=== PATIENT | female | born 1960 | race Caucasian/White ===

== ENCOUNTER 2018-01-22 12:37 | Observation (INO) ==
[2018-01-22] MEDS ORDERED: ENOXAPARIN 100 MG/ML SYRINGE SUBCUT STA (13:20)
[2018-01-22] MEDS ORDERED: AMIODARONE INJ 150 MG in DEXTROSE 5% 100 ML IV ONE (13:24)
[2018-01-22] MEDS ORDERED: AMIODARONE INJ 450 MG in DEXTROSE 5% 241 ML IV SCH (13:30)
[2018-01-22 13:50] LABS: Basophils # 0.1 10*3/uL (0.0-0.2); Basophils % 0.8 % (0.0-0.8); Eosinophils # 0.3 10*3/uL (0.0-0.87); Eosinophils % 3.2 % (0.00-10.9); Hematocrit 37.7 VOL% (35.7-47.0); Hemoglobin 12.8 GM/DL (12.0-16.0); Immature Granulocytes % 0.2 %; Immature Granulocytes Absolute 0.02 #; Lymphocytes # 2.5 10*3/uL (1.4-4.0); Lymphocytes % 27.7 % (21.3-54.2); Mean Corpuscular Hemoglobin 31 PG (27-34); Mean Corpuscular Volume 90.8 FL (87-102); Mean Platelet Volume 11.5 FL (9.6-12.0); Monocytes # 0.9 10*3/uL (0.11-0.8); Monocytes % 9.4 % (1.7-12.7); Neutrophils # 5.3 10*3/uL (1.4-7.4); Neutrophils % 58.7 % (38.7-73.9); Platelet Count 206 T/CUMM (130-400); Red Blood Count 4.15 MC/CUMM (3.8-5.5); Red Cell Distribution Width 13.7 % (9.3-17.3); White Blood Count 9.1 T/CUMM (4-12)
[2018-01-22] MEDS ORDERED: ACETAMINOPHEN 325 MG TABLET PO PRN (14:00)
[2018-01-22] MEDS ORDERED: ONDANSETRON 4 MG/2 ML VIAL IV PRN (14:00)
[2018-01-22] MEDS ORDERED: ZALEPLON 5 MG CAPSULE PO PRN (14:00)
[2018-01-22] MEDS ORDERED: MAGNESIUM SULF RIDER 4 GM in PREMIX 1 EACH IV PRN (14:00)
[2018-01-22] MEDS ORDERED: MAGNESIUM SULF RIDER 2 GM in PREMIX 1 EACH IV PRN (14:00)
[2018-01-22 14:45] LABS: Alanine Aminotransferase 22 U/L (13-56); Albumin 3.3 G/DL (3.4-5.0); Alkaline Phosphatase 87 U/L (45-117); Aspartate Amino Transferase 25 U/L (0-37); Bilirubin,Total < 0.39 MG/DL (0.2-1.0); Blood Urea Nitrogen 19 MG/DL (7-18); Calcium 8.7 MG/DL (8.5-10.1); Glucose 120 MG/DL (74-106); Osmolality,Calculated 292.6 MOS/KG (273-304); Potassium 3.8 MMOL/L (3.5-5.1); Sodium 146 MMOL/L (136-145); Total Protein 6.3 G/DL (6.4-8.3)
[2018-01-22] MEDS ORDERED: NICOTINE 21 MG/24 HR PATCH TRANSDERM SCH (15:00)
[2018-01-22] MEDS: SODIUM CHLORIDE 0.45% 1,000 ML IV SCH (15:36)
[2018-01-22] MEDS: GEMFIBROZIL 600 MG TABLET PO SCH (16:00)
[2018-01-22] MEDS: POTASSIUM CHLORIDE 20 MEQ TABLET PO PRN (16:00)
[2018-01-22] MEDS: MAGNESIUM OXIDE 400 MG TABLET PO SCH ×2 (16:00→20:11)
[2018-01-22] MEDS ORDERED: ALPRAZolam 0.25 MG TABLET PO PRN (16:33)
[2018-01-22] MEDS ORDERED: MAGNESIUM HYDROXIDE SUSP 30 ML UDCUP PO PRN (16:33)
[2018-01-22] MEDS ORDERED: diphenhydrAMINE CAP 25 MG CAPSULE PO PRN (16:33)
[2018-01-22] MEDS: GABAPENTIN 300 MG CAPSULE PO SCH (20:10)
[2018-01-22] MEDS: CILOSTAZOL 100 MG TABLET PO SCH (20:10)
[2018-01-22] MEDS: CARVEDILOL 6.25 MG TABLET PO SCH (20:11)
[2018-01-22] MEDS: DOCUSATE SODIUM 100 MG CAPSULE PO SCH (20:12)
[2018-01-22] MEDS ORDERED: traZODone 50 MG TABLET PO SCH (21:00)
[2018-01-22] MEDS ORDERED: CLOPIDOGREL 75 MG TABLET PO SCH (21:00)
[2018-01-22] MEDS ORDERED: AMIODARONE 200 MG TABLET PO SCH (21:00)
[2018-01-22] MEDS ORDERED: PRAMIPEXOLE 1 MG TABLET PO SCH (21:00)
[2018-01-22] MEDS ORDERED: ATORVASTATIN 80 MG TABLET PO SCH (21:00)
[2018-01-23] MEDS: SODIUM CHLORIDE 0.45% 1,000 ML IV SCH (01:36)
[2018-01-23 03:09] VITALS: BP 133/63
[2018-01-23 03:49] LABS: Basophils # 0.1 10*3/uL (0.0-0.2); Basophils % 0.7 % (0.0-0.8); Eosinophils # 0.3 10*3/uL (0.0-0.87); Hematocrit 35.4 VOL% (35.7-47.0); Hemoglobin 12.2 GM/DL (12.0-16.0); Immature Granulocytes % 0.4 %; Immature Granulocytes Absolute 0.03 #; Lymphocytes # 2.3 10*3/uL (1.4-4.0); Mean Corpuscular HGB Conc 34.5 GM/DL (32-36); Mean Corpuscular Hemoglobin 31 PG (27-34); Mean Corpuscular Volume 90.3 FL (87-102); Mean Platelet Volume 11.2 FL (9.6-12.0); Monocytes # 0.6 10*3/uL (0.11-0.8); Monocytes % 6.9 % (1.7-12.7); Neutrophils # 5.2 10*3/uL (1.4-7.4); Platelet Count 189 T/CUMM (130-400); Red Blood Count 3.92 MC/CUMM (3.8-5.5); White Blood Count 8.4 T/CUMM (4-12)
[2018-01-23 04:23] LABS: Calcium 8.4 MG/DL (8.5-10.1); Osmolality,Calculated 285.8 MOS/KG (273-304); Potassium 3.9 MMOL/L (3.5-5.1); Thyroid Stimulating Hormone 0.605 uIU/ml (0.358-3.74)
[2018-01-23] MEDS ORDERED: HEPARIN/NACL 0.9% 2 UNITS/ML 1,000 ML IV ONE (06:30)
[2018-01-23] MEDS: POTASSIUM CHLORIDE 20 MEQ TABLET PO PRN (06:42)
[2018-01-23] MEDS ORDERED: VERAPAMIL 5 MG/2 ML VIAL ONE (06:52)
[2018-01-23] MEDS ORDERED: LIDOCAINE 1% 20 ML VIAL ONE (06:52)
[2018-01-23] MEDS ORDERED: NITROGLYCERIN DRIP 50 MG/250 ML BOTTLE IV ONE (06:52)
[2018-01-23] MEDS ORDERED: diphenhydrAMINE CAP 25 MG CAPSULE PO ONE (07:00)
[2018-01-23] MEDS ORDERED: DIAZEPAM 5 MG TABLET PO ONE (07:00)
[2018-01-23] MEDS ORDERED: MIDAZOLAM 2 MG/2 ML VIAL ONE (07:04)
[2018-01-23] MEDS ORDERED: fentaNYL 100 MCG/2 ML VIAL ONE (07:04)
[2018-01-23] MEDS ORDERED: ENOXAPARIN 60 MG/0.6 ML SYRINGE ONE (07:13)
[2018-01-23] MEDS: GEMFIBROZIL 600 MG TABLET PO SCH (08:12)
[2018-01-23] MEDS ORDERED: PANTOPRAZOLE 40 MG TABLET PO SCH (09:00)
[2018-01-23] MEDS ORDERED: ASPIRIN EC 81 MG TABLET PO SCH (09:00)
[2018-01-23] MEDS ORDERED: LOSARTAN/HCTZ 50-12.5 MG TABLET PO SCH (09:00)
[2018-01-23] MEDS ORDERED: POTASSIUM CHLORIDE 20 MEQ TABLET PO SCH (09:00)
[2018-01-23] MEDS: CILOSTAZOL 100 MG TABLET PO SCH (09:05)
[2018-01-23] MEDS: CARVEDILOL 6.25 MG TABLET PO SCH (09:05)
[2018-01-23] MEDS: GABAPENTIN 300 MG CAPSULE PO SCH (09:05)
[2018-01-23] MEDS: MAGNESIUM OXIDE 400 MG TABLET PO SCH (09:05)
[2018-01-23] MEDS: DOCUSATE SODIUM 100 MG CAPSULE PO SCH (09:06)
[2018-01-23] MEDS ORDERED: ENOXAPARIN 40 MG/0.4 ML SYRINGE SUBCUT SCH (13:00)
== END 2018-01-23 10:30 | disposition home or self-care (01) ==
LOC: EDUNIT# → EDBD → N.EDINP 12:37 → N.ED 12:37 → N.ICU 14:34
PROVIDERS: ADMIT Internal Medicine Cardiovascular Disease; ATTEND Internal Medicine Cardiovascular Disease
PROC: CLCCHCL (ICD-10-PCS; 2018-01-23 07:45)

== ENCOUNTER 2020-11-20 06:05 | Inpatient (IN) ==
[2020-11-20] MEDS ORDERED: diphenhydrAMINE CAP 50 MG CAPSULE PO ONE (06:06)
[2020-11-20] MEDS ORDERED: POTASSIUM CHLORIDE RIDER 10 MEQ in PREMIX 1 EACH IV PRN (06:06)
[2020-11-20] MEDS ORDERED: DIAZEPAM 5 MG TABLET PO ONE (06:06)
[2020-11-20] MEDS ORDERED: MAGNESIUM SULF RIDER 2 GM/50 ML PREMIX IV PRN (06:06)
[2020-11-20] MEDS ORDERED: ASPIRIN 325 MG TABLET PO ONE (06:06)
[2020-11-20 07:09] LABS: Basophils # 0.1 10*3/uL (0.0-0.2); Basophils % 0.8 % (0.0-0.8); Eosinophils # 0.7 10*3/uL (0.0-0.87); Eosinophils % 7.3 % (0.00-10.9); Hematocrit 35.6 VOL% (35.7-47.0); Hemoglobin 11.6 GM/DL (12.0-16.0); Immature Granulocytes % 0.4 %; Immature Granulocytes Absolute 0.04 #; Lymphocytes # 3.3 10*3/uL (1.4-4.0); Lymphocytes % 35.4 % (21.3-54.2); Mean Corpuscular HGB Conc 32.6 GM/DL (32-36); Mean Corpuscular Volume 92.5 FL (87-102); Mean Platelet Volume 11.1 FL (9.6-12.0); Monocytes % 8.8 % (1.7-12.7); Neutrophils % 47.3 % (38.7-73.9); Platelet Count 170 T/CUMM (130-400); Red Blood Count 3.85 MC/CUMM (3.8-5.5); Red Cell Distribution Width 13.6 % (9.3-17.3); White Blood Count 9.2 T/CUMM (4-12)
[2020-11-20] MEDS ORDERED: diphenhydrAMINE CAP 50 MG CAPSULE ONE (07:13)
[2020-11-20] MEDS ORDERED: DIAZEPAM 5 MG TABLET ONE (07:13)
[2020-11-20] MEDS ORDERED: ASPIRIN 325 MG TABLET ONE (07:13)
[2020-11-20] MEDS: SODIUM CHLORIDE 0.9% 1,000 ML IV SCH ×3 (07:15→21:30)
[2020-11-20 07:33] LABS: Eosinophils 5 % (0-10); Hypochromasia 1+; Lymphocytes 36 % (20-55); Microcytosis 1+; Ovalocytes Slight; Platelet Estimate Adequate; Segmented Neutrophils 55 % (50-85); Total Cells Counted 100
[2020-11-20 07:35] LABS: Albumin 3.4 G/DL (3.4-5.0); Bilirubin,Total 1.1 MG/DL (0.2-1.0); Calcium 9.6 MG/DL (8.5-10.1); Osmolality,Calculated 278.5 MOS/KG (273-304); Potassium 4.5 MMOL/L (3.5-5.1)
[2020-11-20] MEDS ORDERED: MIDAZOLAM 2 MG/2 ML VIAL ONE (09:04)
[2020-11-20] MEDS ORDERED: HYDROmorphone 2 MG/1 ML VIAL ONE ×3 (09:04→10:46)
[2020-11-20] MEDS ORDERED: LIDOCAINE 1% 20 ML VIAL ONE (09:04)
[2020-11-20] MEDS ORDERED: NITROGLYCERIN DRIP 50 MG/250 ML BOTTLE IV ONE (09:04)
[2020-11-20] MEDS ORDERED: VERAPAMIL 5 MG/2 ML VIAL ONE ×3 (09:05→09:45)
[2020-11-20] MEDS ORDERED: ENOXAPARIN 60 MG/0.6 ML SYRINGE ONE (09:18)
[2020-11-20] MEDS ORDERED: TIROFIBAN 5,000 MCG/100 ML PREMIX IV ONE (10:33)
[2020-11-20] MEDS ORDERED: ENOXAPARIN 30 MG/0.3 ML SYRINGE ONE ×2 (10:36→11:13)
[2020-11-20] MEDS ORDERED: ALTEPLASE 12 MG in SODIUM CHLORIDE 0.9% 240 ML IV SCH (12:43)
[2020-11-20] MEDS ORDERED: ALTEPLASE 2 MG VIAL ONE (12:44)
[2020-11-20] MEDS ORDERED: ALTEPLASE 2 MG VIAL INTRACATH ONE (12:47)
[2020-11-20 14:33] LABS: INR 1.1; PT Patient Result 12.2 SECS (9.8-11.9); Partial Thromboplastin Time 46.3 SECS (23.9-33.8)
[2020-11-20] MEDS: HEPARIN DRIP 25,000 UNITS/500 ML PREMIX IV SCH (15:00)
[2020-11-20] MEDS ORDERED: diphenhydrAMINE CAP 25 MG CAPSULE PO PRN (16:16)
[2020-11-20] MEDS ORDERED: GLUCAGON 1 MG VIAL IM PRN (16:17)
[2020-11-20] MEDS ORDERED: MAGNESIUM HYDROXIDE SUSP 30 ML UDCUP PO PRN (16:17)
[2020-11-20] MEDS ORDERED: DEXTROSE 50% 25 GM/50 ML VIAL IV PRN (16:17)
[2020-11-20] MEDS: INSULIN REGULAR 100 UNIT/ML SUBCUT SCH ×2 (17:23→20:23)
[2020-11-20] MEDS ORDERED: HYDROmorphone 2 MG/1 ML VIAL IV ONE (17:56)
[2020-11-20 18:53] LABS: INR 1.1; PT Patient Result 11.8 SECS (9.8-11.9)
[2020-11-20] MEDS: buPROPion 100 MG TABLET PO SCH (21:06)
[2020-11-20] MEDS: MULTIVITAMIN (OCUVITE) TABLET PO SCH (21:06)
[2020-11-20] MEDS: PRAMIPEXOLE 1 MG TABLET PO SCH (21:06)
[2020-11-20] MEDS: gemfibroziL 600 MG TABLET PO SCH (21:07)
[2020-11-20] MEDS: traZODone 50 MG TABLET PO SCH (21:07)
[2020-11-20] MEDS: ATORVASTATIN 80 MG TABLET PO SCH (21:08)
[2020-11-20] MEDS: GABAPENTIN 300 MG CAPSULE PO SCH (21:08)
[2020-11-20] MEDS: PANTOPRAZOLE 40 MG TABLET PO SCH (21:09)
[2020-11-20] MEDS: carvediloL 25 MG TABLET PO SCH (21:09)
[2020-11-20] MEDS ORDERED: ENOXAPARIN 60 MG/0.6 ML SYRINGE SUBCUT ONE (23:40)
[2020-11-21 01:22] LABS: Basophils % 0.2 % (0.0-0.8); Eosinophils # 0.4 10*3/uL (0.0-0.87); Eosinophils % 3.4 % (0.00-10.9); Hematocrit 32.1 VOL% (35.7-47.0); Hemoglobin 10.1 GM/DL (12.0-16.0); Immature Granulocytes % 0.3 %; Immature Granulocytes Absolute 0.03 #; Lymphocytes # 1.2 10*3/uL (1.4-4.0); Lymphocytes % 10.4 % (21.3-54.2); Mean Corpuscular HGB Conc 31.5 GM/DL (32-36); Mean Corpuscular Volume 94.4 FL (87-102); Mean Platelet Volume 11.3 FL (9.6-12.0); Monocytes % 6.8 % (1.7-12.7); Neutrophils % 78.9 % (38.7-73.9); Platelet Count 130 T/CUMM (130-400); Red Cell Distribution Width 13.7 % (9.3-17.3); White Blood Count 11.3 T/CUMM (4-12)
[2020-11-21 01:29] LABS: INR 1.1; PT Patient Result 12.2 SECS (9.8-11.9)
[2020-11-21 01:31] LABS: Partial Thromboplastin Time 41.6 SECS (23.9-33.8)
[2020-11-21 01:34] LABS: Osmolality,Calculated 274.7 MOS/KG (273-304); Potassium 4.4 MMOL/L (3.5-5.1)
[2020-11-21] MEDS: SODIUM CHLORIDE 0.9% 1,000 ML IV SCH ×5 (07:45→22:22)
[2020-11-21] MEDS: INSULIN REGULAR 100 UNIT/ML SUBCUT SCH ×4 (08:44→21:01)
[2020-11-21] MEDS: carvediloL 25 MG TABLET PO SCH ×2 (09:08→18:00)
[2020-11-21] MEDS: ASPIRIN EC 81 MG TABLET PO SCH (09:08)
[2020-11-21] MEDS: gemfibroziL 600 MG TABLET PO SCH ×2 (09:51→21:01)
[2020-11-21] MEDS: MULTIVITAMIN (OCUVITE) TABLET PO SCH ×2 (09:52→21:01)
[2020-11-21] MEDS: buPROPion 100 MG TABLET PO SCH ×2 (09:52→21:01)
[2020-11-21] MEDS: PANTOPRAZOLE 40 MG TABLET PO SCH ×2 (09:52→21:01)
[2020-11-21] MEDS: GABAPENTIN 300 MG CAPSULE PO SCH ×3 (09:52→21:01)
[2020-11-21] MEDS ORDERED: LIDOCAINE 1% 20 ML VIAL ONE (12:52)
[2020-11-21 12:58] LABS: Partial Thromboplastin Time 37.6 SECS (23.9-33.8)
[2020-11-21] MEDS ORDERED: MIDAZOLAM 2 MG/2 ML VIAL ONE ×2 (13:47→16:08)
[2020-11-21] MEDS ORDERED: HYDROmorphone 2 MG/1 ML VIAL ONE ×2 (13:47→16:08)
[2020-11-21] MEDS ORDERED: VERAPAMIL 5 MG/2 ML VIAL ONE (14:00)
[2020-11-21] MEDS ORDERED: NITROGLYCERIN DRIP 50 MG/250 ML BOTTLE IV ONE (14:00)
[2020-11-21] MEDS ORDERED: HEPARIN 5,000 UNIT/1 ML VIAL ONE (14:13)
[2020-11-21] MEDS ORDERED: ALTEPLASE 2 MG VIAL ONE (14:34)
[2020-11-21] MEDS ORDERED: TIROFIBAN 5,000 MCG/100 ML PREMIX IV ONE (15:04)
[2020-11-21] MEDS ORDERED: ONDANSETRON 4 MG/2 ML VIAL IV PRN (16:09)
[2020-11-21] MEDS ORDERED: NITROGLYCERIN SL 0.4 MG TABLET SL PRN (16:09)
[2020-11-21] MEDS ORDERED: ZALEPLON 5 MG CAPSULE PO PRN (16:09)
[2020-11-21] MEDS ORDERED: HYDROmorphone 2 MG/1 ML VIAL IV PRN (16:09)
[2020-11-21] MEDS ORDERED: CLOPIDOGREL 300 MG TABLET ONE (16:14)
[2020-11-21] MEDS: HEPARIN DRIP 25,000 UNITS/500 ML PREMIX IV SCH (17:42)
[2020-11-21] MEDS: ATORVASTATIN 80 MG TABLET PO SCH (21:01)
[2020-11-21] MEDS: cilostazoL 100 MG TABLET PO SCH (21:01)
[2020-11-21] MEDS: PRAMIPEXOLE 1 MG TABLET PO SCH (21:01)
[2020-11-21] MEDS: CLOPIDOGREL 75 MG TABLET PO SCH (21:01)
[2020-11-21] MEDS: traZODone 50 MG TABLET PO SCH (21:01)
[2020-11-22 01:16] LABS: Basophils % 0.1 % (0.0-0.8); Eosinophils # 0.4 10*3/uL (0.0-0.87); Eosinophils % 3.1 % (0.00-10.9); Hematocrit 27.3 VOL% (35.7-47.0); Hemoglobin 8.9 GM/DL (12.0-16.0); Immature Granulocytes % 0.6 %; Immature Granulocytes Absolute 0.07 #; Lymphocytes # 0.8 10*3/uL (1.4-4.0); Lymphocytes % 6.8 % (21.3-54.2); Mean Corpuscular HGB Conc 32.6 GM/DL (32-36); Mean Corpuscular Volume 93.2 FL (87-102); Mean Platelet Volume 11.3 FL (9.6-12.0); Monocytes % 5.1 % (1.7-12.7); Neutrophils % 84.3 % (38.7-73.9); Platelet Count 107 T/CUMM (130-400); Red Blood Count 2.93 MC/CUMM (3.8-5.5); Red Cell Distribution Width 13.6 % (9.3-17.3); White Blood Count 12.1 T/CUMM (4-12)
[2020-11-22 01:31] LABS: Partial Thromboplastin Time 35.6 SECS (23.9-33.8)
[2020-11-22 01:42] LABS: Calcium 7.2 MG/DL (8.5-10.1); Osmolality,Calculated 273.7 MOS/KG (273-304); Potassium 3.4 MMOL/L (3.5-5.1)
[2020-11-22 04:55] LABS: Hypochromasia 1+; Microcytosis 1+; Polychromasia Slight
[2020-11-22 04:56] LABS: Platelet Estimate Adequate
[2020-11-22] MEDS: SODIUM CHLORIDE 0.9% 1,000 ML IV SCH (06:58)
[2020-11-22] MEDS: INSULIN REGULAR 100 UNIT/ML SUBCUT SCH ×4 (07:26→21:32)
[2020-11-22] MEDS ORDERED: POTASSIUM CHLORIDE 20 MEQ TABLET PO ONE (07:30)
[2020-11-22] MEDS ORDERED: ASPIRIN EC 81 MG TABLET PO SCH (09:00)
[2020-11-22] MEDS: carvediloL 25 MG TABLET PO SCH ×2 (09:11→18:01)
[2020-11-22] MEDS: PANTOPRAZOLE 40 MG TABLET PO SCH ×2 (09:11→21:32)
[2020-11-22] MEDS: NICOTINE 21 MG/24 HR PATCH TRANSDERM SCH (09:11)
[2020-11-22] MEDS: cilostazoL 100 MG TABLET PO SCH ×2 (09:11→21:31)
[2020-11-22] MEDS: ASPIRIN EC 81 MG TABLET PO SCH (09:11)
[2020-11-22] MEDS: GABAPENTIN 300 MG CAPSULE PO SCH ×3 (09:11→21:32)
[2020-11-22] MEDS: MULTIVITAMIN (OCUVITE) TABLET PO SCH ×2 (09:11→21:31)
[2020-11-22] MEDS: buPROPion 100 MG TABLET PO SCH ×2 (09:11→21:29)
[2020-11-22] MEDS: gemfibroziL 600 MG TABLET PO SCH ×2 (09:11→21:32)
[2020-11-22] MEDS: HEPARIN DRIP 25,000 UNITS/500 ML PREMIX IV SCH (12:46)
[2020-11-22 13:17] LABS: Partial Thromboplastin Time 30.3 SECS (23.9-33.8)
[2020-11-22] MEDS: traZODone 50 MG TABLET PO SCH (21:32)
[2020-11-22] MEDS: CLOPIDOGREL 75 MG TABLET PO SCH (21:32)
[2020-11-22] MEDS: ATORVASTATIN 80 MG TABLET PO SCH (21:32)
[2020-11-22] MEDS: PRAMIPEXOLE 1 MG TABLET PO SCH (21:32)
[2020-11-22] MEDS: VARENICLINE 1 MG PO SCH (21:33)
[2020-11-23 01:29] LABS: Partial Thromboplastin Time 37.6 SECS (23.9-33.8)
[2020-11-23] MEDS: INSULIN REGULAR 100 UNIT/ML SUBCUT SCH ×2 (07:53→11:13)
[2020-11-23] MEDS: cilostazoL 100 MG TABLET PO SCH ×2 (09:13→21:02)
[2020-11-23] MEDS: PANTOPRAZOLE 40 MG TABLET PO SCH ×2 (09:14→21:02)
[2020-11-23] MEDS: GABAPENTIN 300 MG CAPSULE PO SCH ×3 (09:14→21:01)
[2020-11-23] MEDS: MULTIVITAMIN (OCUVITE) TABLET PO SCH ×2 (09:14→21:02)
[2020-11-23] MEDS: carvediloL 25 MG TABLET PO SCH ×2 (09:14→16:11)
[2020-11-23] MEDS: buPROPion 100 MG TABLET PO SCH ×2 (09:14→21:02)
[2020-11-23] MEDS: gemfibroziL 600 MG TABLET PO SCH ×2 (09:15→21:02)
[2020-11-23] MEDS: ASPIRIN EC 81 MG TABLET PO SCH (09:15)
[2020-11-23] MEDS: NICOTINE 21 MG/24 HR PATCH TRANSDERM SCH (09:16)
[2020-11-23] MEDS: POTASSIUM CHLORIDE 20 MEQ TABLET PO PRN ×3 (09:16→11:57)
[2020-11-23 12:49] LABS: Basophils % 0.2 % (0.0-0.8); Eosinophils # 0.5 10*3/uL (0.0-0.87); Eosinophils % 6.2 % (0.00-10.9); Hematocrit 24.5 VOL% (35.7-47.0); Hemoglobin 7.9 GM/DL (12.0-16.0); Immature Granulocytes % 0.5 %; Immature Granulocytes Absolute 0.04 #; Lymphocytes # 1.3 10*3/uL (1.4-4.0); Lymphocytes % 16.3 % (21.3-54.2); Mean Corpuscular HGB Conc 32.2 GM/DL (32-36); Mean Corpuscular Volume 91.4 FL (87-102); Mean Platelet Volume 11.7 FL (9.6-12.0); Monocytes % 6.5 % (1.7-12.7); Neutrophils % 70.3 % (38.7-73.9); Platelet Count 120 T/CUMM (130-400); Red Blood Count 2.68 MC/CUMM (3.8-5.5); Red Cell Distribution Width 13.6 % (9.3-17.3); White Blood Count 8.1 T/CUMM (4-12)
[2020-11-23 13:05] LABS: Calcium 7.8 MG/DL (8.5-10.1); Osmolality,Calculated 279.3 MOS/KG (273-304)
[2020-11-23 19:23] LABS: Basophils % 0.2 % (0.0-0.8); Eosinophils # 0.5 10*3/uL (0.0-0.87); Eosinophils % 7.5 % (0.00-10.9); Hematocrit 25.5 VOL% (35.7-47.0); Hemoglobin 8.3 GM/DL (12.0-16.0); Immature Granulocytes % 0.8 %; Immature Granulocytes Absolute 0.05 #; Lymphocytes # 1.3 10*3/uL (1.4-4.0); Lymphocytes % 20.5 % (21.3-54.2); Mean Corpuscular HGB Conc 32.5 GM/DL (32-36); Mean Corpuscular Volume 91.7 FL (87-102); Mean Platelet Volume 11.1 FL (9.6-12.0); Monocytes % 7.2 % (1.7-12.7); Neutrophils % 63.8 % (38.7-73.9); Platelet Count 141 T/CUMM (130-400); Red Blood Count 2.78 MC/CUMM (3.8-5.5); Red Cell Distribution Width 13.5 % (9.3-17.3); White Blood Count 6.5 T/CUMM (4-12)
[2020-11-23] MEDS: traZODone 50 MG TABLET PO SCH (21:01)
[2020-11-23] MEDS: PRAMIPEXOLE 1 MG TABLET PO SCH (21:02)
[2020-11-23] MEDS: ATORVASTATIN 80 MG TABLET PO SCH (21:02)
[2020-11-23] MEDS: CLOPIDOGREL 75 MG TABLET PO SCH (21:02)
[2020-11-23] MEDS: VARENICLINE 1 MG PO SCH (21:26)
[2020-11-24 08:45] VITALS: BP 131/60
[2020-11-24] MEDS: ASPIRIN EC 81 MG TABLET PO SCH (09:11)
[2020-11-24] MEDS: GABAPENTIN 300 MG CAPSULE PO SCH (09:11)
[2020-11-24] MEDS: NICOTINE 21 MG/24 HR PATCH TRANSDERM SCH (09:11)
[2020-11-24] MEDS: gemfibroziL 600 MG TABLET PO SCH (09:11)
[2020-11-24] MEDS: MULTIVITAMIN (OCUVITE) TABLET PO SCH (09:12)
[2020-11-24] MEDS: PANTOPRAZOLE 40 MG TABLET PO SCH (09:12)
[2020-11-24] MEDS: buPROPion 100 MG TABLET PO SCH (09:12)
[2020-11-24] MEDS: carvediloL 25 MG TABLET PO SCH (09:12)
[2020-11-24] MEDS: cilostazoL 100 MG TABLET PO SCH (09:12)
[2020-11-26 13:55] LABS: HIT Interpretation Negative (Negative)
== END 2020-11-24 13:18 | disposition home or self-care (01) | DRG 169 ==
LOC: N.CL 06:05 → N.ICU 12:53 → N.TELES 11-22 17:20
PROVIDERS: ADMIT Internal Medicine Cardiovascular Disease; ATTEND Internal Medicine Cardiovascular Disease

== ENCOUNTER 2022-04-08 06:12 | Inpatient (IN) ==
[2022-04-03 12:53] LABS: Basophils # 0.1 10*3/uL (0.0-0.2); Basophils % 0.6 % (0.0-0.8); Eosinophils # 0.3 10*3/uL (0.0-0.87); Eosinophils % 3.9 % (0.00-10.9); Hematocrit 40.6 VOL% (35.7-47.0); Hemoglobin 13.6 GM/DL (12.0-16.0); Immature Granulocytes % 0.2 %; Immature Granulocytes Absolute 0.02 #; Lymphocytes # 2.6 10*3/uL (1.4-4.0); Lymphocytes % 31.8 % (21.3-54.2); Mean Corpuscular HGB Conc 33.5 GM/DL (32-36); Mean Corpuscular Volume 90.6 FL (87-102); Mean Platelet Volume 11.7 FL (9.6-12.0); Monocytes # 0.5 10*3/uL (0.11-0.8); Monocytes % 6.1 % (1.7-12.7); Neutrophils % 57.4 % (38.7-73.9); Platelet Count 186 T/CUMM (130-400); Red Blood Count 4.48 MC/CUMM (3.8-5.5); Red Cell Distribution Width 13.3 % (9.3-17.3); White Blood Count 8.2 T/CUMM (4-12)
[2022-04-03 12:56] LABS: PT Patient Result 11.1 SECS (10.1-12.1)
[2022-04-03 13:10] LABS: Alanine Aminotransferase 28 U/L (13-56); Albumin 3.6 G/DL (3.4-5.0); Alkaline Phosphatase 79 U/L (45-117); Aspartate Amino Transferase 31 U/L (0-37); Bilirubin,Total < 0.39 MG/DL (0.20-1.00); Blood Urea Nitrogen 9 MG/DL (7-18); Calcium 8.8 MG/DL (8.5-10.1); Carbon Dioxide 31 MMOL/L (21-32); Chloride 108 MMOL/L (98-107); Glucose 110 MG/DL (74-106); Osmolality,Calculated 282.1 MOS/KG (273-304); Potassium 4.1 MMOL/L (3.5-5.1); Sodium 142 MMOL/L (136-145)
[2022-04-08] MEDS ORDERED: LACTATED RINGERS 1,000 ML IV SCH (07:30)
[2022-04-08] MEDS ORDERED: TISSUE ADHESIVE 1 EACH APPLICATOR TOP ONE (08:24)
[2022-04-08] MEDS ORDERED: BUPIVACAINE 0.5% 50 ML VIAL ONE (08:24)
[2022-04-08] MEDS ORDERED: HEPARIN 5,000 UNIT/1 ML VIAL ONE (08:24)
[2022-04-08] MEDS ORDERED: MIDAZOLAM 2 MG/2 ML VIAL ONE (08:41)
[2022-04-08] MEDS ORDERED: propofoL 200 MG/20 ML VIAL IV ONE (08:41)
[2022-04-08] MEDS ORDERED: LIDOCAINE 2% 5 ML VIAL ONE (08:41)
[2022-04-08] MEDS ORDERED: fentaNYL 100 MCG/2 ML VIAL ONE (08:42)
[2022-04-08] MEDS ORDERED: ROCURONIUM 50 MG/5 ML VIAL IV ONE (08:54)
[2022-04-08] MEDS ORDERED: ePHEDrine 50 MG/ML VIAL ONE (09:10)
[2022-04-08] MEDS ORDERED: ETOMIDATE 40 MG/20 ML VIAL IV ONE (09:11)
[2022-04-08] MEDS ORDERED: HEPARIN 10,000 UNIT/10 ML VIAL ONE (09:26)
[2022-04-08] MEDS ORDERED: ONDANSETRON 4 MG/2 ML VIAL ONE (09:33)
[2022-04-08] MEDS ORDERED: ACETAMINOPHEN INJ 1,000 MG/100 ML VIAL IV ONE (09:35)
[2022-04-08] MEDS ORDERED: GLYCOPYRROLATE 0.4 MG/2 ML VIAL ONE (09:37)
[2022-04-08] MEDS ORDERED: NEOSTIGMINE 10 MG/10 ML VIAL ONE (09:38)
[2022-04-08] MEDS ORDERED: LACTATED RINGERS 1,000 ML IV ONE (09:44)
[2022-04-08] MEDS ORDERED: PROTAMINE SULFATE 50 MG/5 ML VIAL IV ONE (10:03)
[2022-04-08] MEDS ORDERED: PHENYLEPHRINE 1 MG/10 ML SYRINGE IV ONE (10:08)
[2022-04-08] MEDS ORDERED: SEVOFLURANE 1 UNIT/15 MINUTE INH ONE (10:15)
[2022-04-08] MEDS ORDERED: ONDANSETRON 4 MG/2 ML VIAL IV PRN ×2 (10:20→11:18)
[2022-04-08] MEDS: HYDROmorphone 1 MG/1 ML SYRINGE IV PRN ×4 (11:13→20:10)
[2022-04-08] MEDS: GABAPENTIN 300 MG CAPSULE PO SCH ×2 (15:02→20:09)
[2022-04-08] MEDS: LACTATED RINGERS 1,000 ML IV SCH ×2 (16:11→23:55)
[2022-04-08] MEDS: carvediloL 25 MG TABLET PO SCH (17:22)
[2022-04-08] MEDS: gemfibroziL 600 MG TABLET PO SCH (20:09)
[2022-04-08] MEDS: PANTOPRAZOLE 40 MG TABLET PO SCH (20:09)
[2022-04-08] MEDS: cilostazoL 50 MG TABLET PO SCH (20:09)
[2022-04-08] MEDS: POTASSIUM CHLORIDE 20 MEQ TABLET PO SCH (20:09)
[2022-04-08] MEDS ORDERED: ATORVASTATIN 80 MG TABLET PO SCH (21:00)
[2022-04-08] MEDS ORDERED: CLOPIDOGREL 75 MG TABLET PO SCH (21:00)
[2022-04-08] MEDS ORDERED: PRAMIPEXOLE 1 MG TABLET PO SCH (21:00)
[2022-04-09] MEDS: HYDROmorphone 1 MG/1 ML SYRINGE IV PRN ×2 (01:39→08:22)
[2022-04-09 05:59] LABS: Basophils % 0.5 % (0.0-0.8); Eosinophils # 0.2 10*3/uL (0.0-0.87); Eosinophils % 2.8 % (0.00-10.9); Hematocrit 34.5 VOL% (35.7-47.0); Hemoglobin 11.2 GM/DL (12.0-16.0); Immature Granulocytes % 0.2 %; Immature Granulocytes Absolute 0.02 #; Lymphocytes # 2.4 10*3/uL (1.4-4.0); Lymphocytes % 28.4 % (21.3-54.2); Mean Corpuscular HGB Conc 32.5 GM/DL (32-36); Mean Corpuscular Volume 93.8 FL (87-102); Monocytes # 0.7 10*3/uL (0.11-0.8); Monocytes % 8.1 % (1.7-12.7); Platelet Count 135 T/CUMM (130-400); Red Blood Count 3.68 MC/CUMM (3.8-5.5); Red Cell Distribution Width 13.3 % (9.3-17.3); White Blood Count 8.6 T/CUMM (4-12)
[2022-04-09 06:13] LABS: Calcium 8.4 MG/DL (8.5-10.1); Osmolality,Calculated 281.1 MOS/KG (273-304); Potassium 4.1 MMOL/L (3.5-5.1)
[2022-04-09] MEDS: PANTOPRAZOLE 40 MG TABLET PO SCH (08:20)
[2022-04-09] MEDS: POTASSIUM CHLORIDE 20 MEQ TABLET PO SCH (08:21)
[2022-04-09] MEDS: cilostazoL 50 MG TABLET PO SCH (08:21)
[2022-04-09] MEDS: LACTATED RINGERS 1,000 ML IV SCH (08:21)
[2022-04-09] MEDS: GABAPENTIN 300 MG CAPSULE PO SCH (08:21)
[2022-04-09] MEDS: gemfibroziL 600 MG TABLET PO SCH (08:21)
[2022-04-09] MEDS: carvediloL 25 MG TABLET PO SCH (08:21)
[2022-04-09] MEDS ORDERED: NICOTINE 21 MG/24 HR PATCH TRANSDERM SCH (09:00)
[2022-04-09] MEDS ORDERED: CLOPIDOGREL 75 MG TABLET PO SCH (09:00)
[2022-04-09] MEDS ORDERED: ASPIRIN CHEW 81 MG TABLET PO SCH (09:00)
[2022-04-09] MEDS ORDERED: ASPIRIN EC 81 MG TABLET PO SCH (09:00)
[2022-04-09 12:35] VITALS: BP 156/72
== END 2022-04-09 15:00 | disposition home or self-care (01) | DRG 169 ==
LOC: N.SDSINP 06:12 → N.3E 12:47
PROVIDERS: ADMIT Surgery; ATTEND Surgery